=== PATIENT | female | born 1950 | race Caucasian/White ===

== ENCOUNTER 2019-05-22 11:37 | Emergency (ER) | payer MEDICARE, OTHER ==
--- NOTE | 2019-05-22 12:05 | EDM.PDOC ---
ED HPI GENERAL MEDICAL PROBLEM - General Chief Complaint: General Stated Complaint: [facility] Time Seen by Provider: 05/22/19 11:44 Source of Information: Reports: Patient, EMS Notes Reviewed, Family (), RN Notes Reviewed History Limitations: Reports: No Limitations - History of Present Illness INITIAL COMMENTS - FREE TEXT/NARRATIVE: Patient is a 69-year-old female who presents to the ED by [facility] for the evaluation of increased confusion at home. The patient does have a history of pancreatic cancer. The states that he called the ambulance because the patient was little more confused than she normally was and was not following commands or wanting to listen to him. He notes that she is done this in times past where she has been a little bit dehydrated when she acts like this. The patient herself complains of dizziness only, when I asked her if it is lightheadedness or dizziness, she states it is just dizziness she does not relate that it worsens with positioning, or if it is world spinning dizziness. She states that this has just worsened over the last 2 days. She is not complaining of any fevers or chills, nausea or vomiting or diarrhea, no chest pain or shortness of breath, no urinary issues. states that her appetite is been okay but her fluid intake has been somewhat light over the last few days. Patient is not complaining of any pain anywhere. Patient's primary care provider is Dr. Ferguson, and the patient's oncologist is Dr. Diane. The patient was started on Spironolactone 100 mg daily for fluid in her abdomen but the states this was around 2 months ago. He was questioning whether or not this was a little bit too much fluid diuresis as well. The only other new medication that the patient has been started on was omeprazole for some heartburn type symptoms last week. states that the patient seemed to be a little bit dehydrated yesterday, but when they went to bed last night she was fine, and when he woke up this morning, she seemed increasingly more confused and was wrapped up in a towel which is something she does not do on a regular basis. - Related Data Allergies Allergy/AdvReac Type Severity Reaction Status Date / Time pravastatin Allergy Other Verified 05/22/19 11:43 Home Meds: Home Meds Acetaminophen/HYDROcodone [[place] 325-5 MG] 1 tab PO Q4HR PRN 02/12/20 [History] Amoxicillin/Clavulanate K [Augmentin 875-125 MG] 1 tab PO BID #20 tablet [Rx] Lipase/Protease/Amylase [Enzadyne Capsule] 1 cap PO TID 05/22/19 [History] Loperamide [Imodium] 2 mg PO ASDIRECTED PRN 05/22/19 [History] Melatonin 1 mg PO BEDTIME 05/22/19 [History] Ondansetron HCl [Zofran] 8 mg SL ASDIRECTED PRN 05/22/19 [History] Potassium Chloride 40 meq PO DAILY 05/22/19 [History] Promethazine [Phenergan] 25 mg TOP Q6HR PRN 05/22/19 [History] Ranitidine [Zantac] 150 mg PO BEDTIME PRN 05/22/19 [History] Rosuvastatin [Crestor] 5 mg PO DAILY 05/22/19 [History] Simethicone 180 mg PO DAILY PRN 05/22/19 [History] Spironolactone [Aldactone] 100 mg PO DAILY 05/22/19 [History] Ubiquinol 400 mg PO DAILY 05/22/19 [History] oxyCODONE 1 - 2 cap PO Q6HR PRN 05/22/19 [History] traMADol [Ultram] 50 mg PO Q6HR PRN 05/22/19 [History] valACYclovir HCl [valACYclovir] 2 gm PO Q12HR 05/22/19 [History] Past Medical History Gastrointestinal History: Reports: Other (See Below) Other Gastrointestinal History: abdominal hernia Oncologic (Cancer) History: Reports: Other (See Below) Other Oncologic History: pancreatic CA - had chemo and radiation, Last Chemo August 2018. Dr Diane is her oncologist, scans/test show no growth since chemo - Past Surgical History GI Surgical History: Reports: Appendectomy, Other (See Below) Other GI Surgeries/Procedures: stent in biliary duct - gallbladder Musculoskeletal Surgical History: Reports: Knee Replacement Social & Family History - Tobacco Use Smoking Status *Q: Never Smoker - Caffeine Use Caffeine Use: Reports: Coffee - Recreational Drug Use Recreational Drug Use: No ED ROS GENERAL - Review of Systems Review Of Systems: See Below Constitutional: Denies: Fever, Chills, Decreased Appetite HEENT: Denies: Vision Change Respiratory: Denies: Shortness of Breath, Cough Cardiovascular: Denies: Chest Pain GI/Abdominal: Denies: Abdominal Pain, Constipation, Diarrhea, Decreased Appetite , Nausea, Vomiting : Denies: Dysuria, Frequency, Urgency Neurological: Reports: Confusion ( states that she has increased confusion from normal), Dizziness. Denies: Headache, Trouble Speaking Psychiatric: Reports: Confusion. Denies: Agitation, Anxiety ED EXAM, GENERAL - Physical Exam Exam: See Below Exam Limited By: No Limitations General Appearance: Alert, WD/WN, No Apparent Distress Eye Exam: Bilateral Eye: Normal Inspection, PERRL, Other (pt will not follow my command for EOM but she does look around the room) Ears: Normal External Exam Nose: Normal Inspection Throat/Mouth: Normal Inspection, Normal Lips, Normal Teeth, Normal Gums, Normal Oropharynx, Normal Voice, No Airway Compromise Head: Atraumatic, Normocephalic Neck: Normal Inspection Respiratory/Chest: No Respiratory Distress, Lungs Clear, Normal Breath Sounds, No Accessory Muscle Use, Chest Non-Tender Cardiovascular: Normal Peripheral Pulses, Regular Rate, Rhythm, No Murmur Peripheral Pulses: 3+: Radial (L), Radial (R) GI/Abdominal: Normal Bowel Sounds, Soft, Non-Tender, No Distention, No Mass Extremities: Normal Inspection, Normal Capillary Refill Neurological: Alert, CN II-XII Intact (grossly), Normal Cognition, No Motor/ Sensory Deficits Psychiatric: Normal Affect, Normal Mood Skin Exam: Warm, Dry, Intact, Normal Color, No Rash Course - Vital Signs Last Recorded V/S: Last Vital Signs Temp 97.3 F 05/22/19 11:39 Pulse 79 05/22/19 11:39 Resp 18 05/22/19 11:39 BP 114/80 05/22/19 11:39 Pulse Ox 98 05/22/19 11:39 Orthostatic Blood Pressure [ 117/84 Standing] Orthostatic Blood Pressure [ 110/74 Supine] - Orders/Labs/Meds Orders: Active Orders 24 hr Category Date Time Status Orthostatic Vital Signs [RC] ASDIRECTED Care 05/22/19 11:45 Ordered Labs: Laboratory Tests 05/22/19 05/22/19 05/22/19 Range/Units 11:55 11:55 12:40 WBC 3.55 L (3.98-10.04) K/mm3 RBC 3.78 L (3.98-5.22) M/mm3 Hgb 10.8 L (11.2-15.7) gm/dl Hct 33.8 L (34.1-44.9) % MCV 89.4 (79.4-94.8) fl MCH 28.6 (25.6-32.2) pg MCHC 32.0 L (32.2-35.5) g/dl RDW Std Deviation 60.3 H (36.4-46.3) fL Plt Count 136 L (182-369) K/mm3 MPV 9.1 L (9.4-12.3) fl Neutrophils % (Manual) 67 H (40-60) % Band Neutrophils % 0 (0-10) % Lymphocytes % (Manual) 16 L (20-40) % Atypical Lymphs % 0 % Monocytes % (Manual) 13 H (2-10) % Eosinophils % (Manual) 4 (0.7-5.8) % Basophils % (Manual) 0 L (0.1-1.2) Platelet Estimate Adequate RBC Morph Comment Normal Sodium 139 (136-145) mEq/L Potassium 4.1 (3.5-5.1) mEq/L Chloride 106 (98-107) mEq/L Carbon Dioxide 22 (21-32) mEq/L Anion Gap 15.1 H (5-15) BUN 16 (7-18) mg/dL Creatinine 0.8 (0.55-1.02) mg/dL Est Cr Clr Drug Dosing 57.50 mL/min Estimated GFR (MDRD) > 60 (>60) mL/min BUN/Creatinine Ratio 20.0 H (14-18) Glucose 110 (80-115) mg/dL Calcium 9.4 (8.5-10.1) mg/dL Total Bilirubin 0.8 (0.2-1.0) mg/dL AST 39 H (15-37) U/L ALT 55 (14-59) U/L Alkaline Phosphatase 114 (46-116) U/L Total Protein 6.3 L (6.4-8.2) g/dl Albumin 2.6 L (3.4-5.0) g/dl Globulin 3.7 gm/dL Albumin/Globulin Ratio 0.7 L (1-2) Urine Color Light yellow (Yellow) Urine Appearance Clear (Clear) Urine pH 7.0 (5.0-8.0) Ur Specific [place] 1.020 (1.005-1.030) Urine Protein Negative (Negative) Urine Glucose (UA) Negative (Negative) Urine Ketones Negative (Negative) Urine Occult Blood Negative (Negative) Urine Nitrite Negative (Negative) Urine Bilirubin Negative (Negative) Urine Urobilinogen 0.2 (0.2-1.0) Ur Leukocyte Esterase Negative (Negative) Urine RBC 0-5 (0-5) /hpf Urine WBC 0-5 (0-5) /hpf Ur Squamous Epith Cells 0-5 (0-5) /hpf Amorphous Sediment Few H (NOT SEEN) /hpf Urine Bacteria Few (FEW) /hpf Urine Mucus Not seen (FEW) /hpf - Re-Assessments/Exams Free Text/Narrative Re-Assessment/Exam: 05/22/19 12:18 Patient presents to the ED for the evaluation of some increased confusion and not following commands. Due to this being kind of a new thing for the patient I did go ahead with a head CT, and will get a CBC, CMP, urinalysis and some orthostatic vital signs. Of note the patient did receive about 500 mils of fluid from the ambulance staff before evaluation by me. So orthostatic vital signs might be a little bit skewed but her systolic blood pressure still in the low 100s. 05/22/19 13:[address] is back, demonstrates no acute intracranial abnormality but does notice some maxillary sinusitis that is suspicious for acute sinusitis. Upon talking with the patient's family again, they do state that she has had an upper respiratory cold for about 2 weeks. With this new is a will place her on antibiotics for bacterial sinusitis and have her follow-up with their regular doc within the next week for recheck. Departure - Departure Time of Disposition: 13:54 Disposition: Home, Self-Care 01 Condition: Fair Clinical Impression: Acute sinusitis Qualifiers: Sinusitis location: maxillary Recurrence: non-recurrent Qualified Code(s): J01.00 - Acute maxillary sinusitis, unspecified - Discharge Information *PRESCRIPTION DRUG MONITORING PROGRAM REVIEWED*: No *COPY OF PRESCRIPTION DRUG MONITORING REPORT IN PATIENT FLASH: No Prescriptions: Amoxicillin/Clavulanate K [Augmentin 875-125 MG] 1 tab PO BID #20 tablet Instructions: How to Perform a Sinus Rinse, [id number], Sinusitis, Adult, [id number] Forms: ED Department Discharge Additional Instructions: You have been evaluated in the ED today for your increased confusion/dizziness. You did receive some IV fluids in the ER as well for management of your symptoms and suspected dehydration. You had some laboratory evaluation and a head CT done today to rule out any signs of stroke. This did not elicit any sign of stroke at today's visit, but did demonstrate that you are suffering from acute maxillary sinusitis. Since this is been present for around 2 weeks, you will be treated with some antibiotics, 1 tablet 2 times a day for the next 10 days. This antibiotic can cause quite a bit of diarrhea so I recommend that you take a probiotic while taking this antibiotic. Please increase your fluid intake. Get plenty of rest as well. You should feel better in a few days. Recommend that you take some [id number] nasal decongestants, cough/cold remedies to combat this. Medicines like phenylephrine and other sinus decongestants are adequate. You should also try some [id number] nasal rinses, to see if this does not help relieve some of your symptoms. Further recommend trying to decrease your Spironolactone intake by half, if you are taking 100 mg tablet, please split these in half and try this dosage for the next week or 2 or until told otherwise by your regular provider. If your symptoms are not better in one week's time recommend that you follow up in a clinic or your primary care provider. Please return to the ED if your symptoms change or worsen. Sepsis Event Note - Evaluation Sepsis Screening Result: No Definite Risk - Focused Exam Vital Signs: Vital Signs Temp Pulse Resp BP Pulse Ox 05/22/19 11:39 97.3 F 79 18 114/80 98 Date Exam was Performed: 05/22/19 Time Exam was Performed: 13:52 - My Orders Last 24 Hours: My Active Orders 05/22/19 11:45 Orthostatic Vital Signs [RC] ASDIRECTED - Assessment/Plan Last 24 Hours: My Active Orders 05/22/19 11:45 Orthostatic Vital Signs [RC] ASDIRECTED
--- NOTE | 2019-05-22 13:16 | CT ---
Head CT Technique: Multiple axial sections through the brain were obtained. Intravenous contrast was not utilized. Comparison: No prior intracranial imaging. Findings: Ventricles along with basal cisterns and sulci over the convexities are within normal limits for the patient's age. No abnormal parenchymal densities are seen. No evidence of intracranial hemorrhage. No midline shift or mass-effect is seen. Bone window settings were reviewed which show partially visualized fluid levels within the maxillary sinuses. Minimal mucosal thickening is seen within the ethmoid sinuses. Mastoid sinuses are clear. No acute calvarial abnormality is appreciated. Impression: 1. Fluid partially visualized within both maxillary sinuses suspicious for acute sinusitis. 2. No acute intracranial abnormality is appreciated. Diagnostic code #3 This report was dictated in [place] Standard Time
== END 2019-05-22 14:40 | disposition home or self-care (01) ==
LOC: JD.ED 11:37
DX: J01.00 Acute maxillary sinusitis, unspecified (principal); Z88.8 Allergy status to other drugs, medicaments and biological substances; Z85.07 Personal history of malignant neoplasm of pancreas
CPT/HCPCS: 36415; 70450; 70450-26; 80053; 81001; 85007; 85027; 99283; 99285-25

== ENCOUNTER → 2020-12-31 | Day surgery (SDC) | payer MEDICARE, OTHER ==
[~2020-12-31] MED LIST: Cefuroxime 10 MG/ML SYRINGE EYERT SCH; Lidocaine 1% PF 2 ML SDV INJECT SCH; Pilocarpine 4% Ophth Soln 15 ML Bot EYERT SCH
[2020-12-31] MEDS: Polymyxin B/Trimethoprim 10 ML Bottle EYERT SCH ×3 (08:15→10:37)
[2020-12-31] MEDS: Brimonidine 0.2% Ophth Soln 5 ML Bottle EYERT SCH ×3 (08:20→10:37)
[2020-12-31] MEDS: Phenylephrine 2.5% Ophth Soln 2 ML Bot EYERT SCH ×6 (08:26→10:36)
[2020-12-31] MEDS: Tropicamide 1% Ophth Soln 15 ML Bottle EYERT SCH ×4 (08:32→09:30)
--- NOTE | 2020-12-31 09:55 | PCM.PREANE ---
Preanesthetic Assessment - Anesthesia/Transfusion/Family Hx Anesthesia History: Prior Anesthesia Without Reaction Family History of Anesthesia Reaction: No Transfusion History: No Prior Transfusion(s) Intubation History: Unknown - Review of Systems General: No Symptoms Pulmonary: No Symptoms Cardiovascular: No Symptoms Gastrointestinal: No Symptoms Neurological: No Symptoms Other: Reports: None - Physical Assessment NPO Status Date: 12/30/20 NPO Status Time: 20:00 Vital Signs: Last Vital Signs Temp 36.2 C 12/31/20 08:00 Pulse 76 12/31/20 08:00 Resp 16 12/31/20 08:00 BP 117/58 L 12/31/20 08:00 Pulse Ox 98 12/31/20 08:00 Height: 1.57 m Weight: 52.163 kg ASA Class: 2 Mental Status: Alert & Oriented x3 Airway Class: Mallampati = 1 Dentition: Reports: Normal Dentition Thyro-Mental Finger Breadths: 3 Mouth Opening Finger Breadths: 3 ROM/Head Extension: Full Lungs: Clear to Auscultation, Normal Respiratory Effort Cardiovascular: Regular Rate, Regular Rhythm - Allergies Allergies/Adverse Reactions: Allergies Allergy/AdvReac Type Severity Reaction Status Date / Time pravastatin AdvReac Muscle Verified 12/31/20 08:15 Aches - Acknowledgements Anesthesia Type Planned: MAC Pt an Appropriate Candidate for the Planned Anesthesia: Yes Alternatives and Risks of Anesthesia Discussed w Pt/Guardian: Yes Pt/Guardian Understands and Agrees with Anesthesia Plan: Yes PreAnesthesia Questionnaire HEENT History: Reports: Impaired Vision Cardiovascular History: Reports: High Cholesterol, Hypertension Gastrointestinal History: Reports: Other (See Below) Other Gastrointestinal History: abdominal hernia Oncologic (Cancer) History: Reports: Other (See Below) Other Oncologic History: pancreatic CA - had chemo and radiation, Last Chemo August 2018. Dr Diane is her oncologist, scans/test show no growth since chemo - Past Surgical History GI Surgical History: Reports: Appendectomy, Other (See Below) Other GI Surgeries/Procedures: stent in biliary duct - gallbladder Musculoskeletal Surgical History: Reports: Knee Replacement - SUBSTANCE USE Tobacco Use Status *Q: Never Tobacco User - HOME MEDS Home Medications: Home Meds Spironolactone [Aldactone] 100 mg PO DAILY 05/22/19 [History] valACYclovir HCl [valACYclovir] 2 gm PO Q12HR 05/22/19 [History] Calcium Carb/Vitamin D3/Vit K1 [Calcium + D Soft Chewable Tab] 1 tab PO DAILY 12/30/20 [History] Carboxymethylcellulose Sodium [Artificial Tears] 1 dose EYEBOTH ASDIRECTED 12/30/20 [History] Cranberry 500 mg PO DAILY 12/30/20 [History] Cyanocobalamin/Folic Acid [Vitamin A49-Ixdgo Acid] 1 tab PO DAILY 12/30/20 [H istory] Magnesium Oxide 400 mg PO DAILY 12/30/20 [History] Omeprazole Magnesium [Prilosec Otc] 20 mg PO DAILY 12/30/20 [History] Rifaximin [Xifaxan] 550 mg PO ASDIRECTED 12/30/20 [History] - CURRENT (IN HOUSE) MEDS Current Meds: Current Medications Brimonidine Tartrate (Brimonidine 0.2% Ophth Soln 5 Ml Bottle) 0 ml EYERT ASDIRECTED BRENT Stop: 12/31/20 18:00 Last Admin: 12/31/20 09:09 Dose: 1 drop Documented by: Cefuroxime Sodium (Cefuroxime 10 Mg/Ml Syringe) 0 mg EYERT ASDIRECTED BRENT Stop: 12/31/20 18:00 Lidocaine HCl (Lidocaine 1% Pf 2 Ml Sdv) 0 ml INJECT ASDIRECTED BRENT Stop: 12/31/20 18:00 Phenylephrine HCl (Phenylephrine 2.5% Ophth Soln 2 Ml Bot) 0 ml EYERT ASDIRECTED BRENT Stop: 12/31/20 18:00 Last Admin: 12/31/20 09:20 Dose: 1 drop Documented by: Pilocarpine HCl (Pilocarpine 4% Ophth Soln 15 Ml Bot) 0 ml EYERT ASDIRECTED BRENT Stop: 12/31/20 18:00 Polymyxin/Trimethoprim Sulfate (Polymyxin B/Trimethoprim 10 Ml Bottle) 0 ml EYERT ASDIRECTED BRENT Stop: 12/31/20 18:00 Last Admin: 12/31/20 09:01 Dose: 1 drop Documented by: Tetracaine HCl (Tetracaine Hcl/Pf 0.5% 4 Ml Bottle) 0 ml EYEBOTH ASDIRECTED BRENT Stop: 12/31/20 18:00 Tropicamide (Tropicamide 1% Ophth Soln 15 Ml Bottle) 0 ml EYERT ASDIRECTED BRENT Stop: 12/31/20 18:00 Last Admin: 12/31/20 09:30 Dose: 1 drop Documented by:
[2020-12-31] MEDS: Tetracaine HCl/PF 0.5% 4 ML Bottle EYEBOTH SCH ×3 (10:06→10:36)
--- NOTE | 2020-12-31 10:36 | PCM48HPAN ---
Post Anesthesia Note - EVALUATION WITHIN 48HRS OF ANESTHETIC Vital Signs in Normal Range: Yes Patient Participated in Evaluation: Yes Respiratory Function Stable: Yes Airway Patent: Yes Cardiovascular Function Stable: Yes Hydration Status Stable: Yes Pain Control Satisfactory: Yes Nausea and Vomiting Control Satisfactory: Yes Mental Status Recovered: Yes Vital Signs: Last Vital Signs Temp 36.2 C 12/31/20 08:00 Pulse 76 12/31/20 08:00 Resp 16 12/31/20 08:00 BP 117/58 L 12/31/20 08:00 Pulse Ox 98 12/31/20 08:00
== END ==
LOC: JD.SDS 08:01
PROVIDERS: ATTEND Ophthalmology
DX: H25.813 Combined forms of age-related cataract, bilateral (principal); D31.31 Benign neoplasm of right choroid; H16.223 Keratoconjunctivitis sicca, not specified as Sjogren's, bilateral; H02.834 Dermatochalasis of left upper eyelid; H02.831 Dermatochalasis of right upper eyelid; E78.00 Pure hypercholesterolemia, unspecified; I10 Essential (primary) hypertension; Z90.49 Acquired absence of other specified parts of digestive tract; Z98.890 Other specified postprocedural states; Z79.899 Other long term (current) drug therapy; Z88.8 Allergy status to other drugs, medicaments and biological substances
CPT/HCPCS: 66984; J0697; V2632

== ENCOUNTER 2021-07-29 10:25 | Day surgery (SDC) | payer MEDICARE, OTHER ==
[2021-07-29] MEDS: Polymyxin B/Trimethoprim 10 ML Bottle EYELF SCH ×4 (10:20→13:06)
[2021-07-29] MEDS: Brimonidine 0.2% Ophth Soln 5 ML Bottle EYELF SCH ×4 (10:23→13:06)
[~2021-07-29 10:25] MED LIST changes: +Brimonidine 0.2% Ophth Soln 5 ML Bottle EYELF SCH; +Cefuroxime 10 MG/ML SYRINGE EYELF SCH; -Cefuroxime 10 MG/ML SYRINGE EYERT SCH; +Phenylephrine 2.5% Ophth Soln 2 ML Bot EYELF SCH; +Pilocarpine 4% Ophth Soln 15 ML Bot EYELF SCH; -Pilocarpine 4% Ophth Soln 15 ML Bot EYERT SCH; +Polymyxin B/Trimethoprim 10 ML Bottle EYELF SCH; +Tetracaine HCl/PF 0.5% 4 ML Bottle EYEBOTH SCH; +Tropicamide 1% Ophth Soln 15 ML Bottle EYELF SCH
[2021-07-29] MEDS: Phenylephrine 2.5% Ophth Soln 2 ML Bot EYELF SCH ×6 (10:27→12:57)
[2021-07-29] MEDS: Tropicamide 1% Ophth Soln 15 ML Bottle EYELF SCH ×4 (10:31→11:03)
[2021-07-29] MEDS: Tetracaine HCl/PF 0.5% 4 ML Bottle EYEBOTH SCH ×5 (11:05→12:57)
[2021-07-29] MEDS: Lidocaine 1% PF 2 ML SDV INJECT SCH ×2 (11:33→13:05)
[2021-07-29] MEDS: Cefuroxime 10 MG/ML SYRINGE EYELF SCH ×2 (11:45→13:05)
[2021-07-29] MEDS: Pilocarpine 4% Ophth Soln 15 ML Bot EYELF SCH ×2 (11:46→13:06)
== END 2021-07-29 11:54 | disposition home or self-care (01) ==
LOC: JD.SDS 10:25
PROVIDERS: ATTEND Ophthalmology
DX: H25.812 Combined forms of age-related cataract, left eye (principal); H17.813 Minor opacity of cornea, bilateral; H18.513 Endothelial corneal dystrophy, bilateral; H35.3131 Nonexudative age-related macular degeneration, bilateral, early dry stage; H16.103 Unspecified superficial keratitis, bilateral; H16.223 Keratoconjunctivitis sicca, not specified as Sjogren's, bilateral; Z96.1 Presence of intraocular lens; Z88.1 Allergy status to other antibiotic agents; Z79.899 Other long term (current) drug therapy
CPT/HCPCS: J0697

== ENCOUNTER 2024-08-06 14:24 | Emergency (ER) | payer MEDICARE, OTHER ==
[2024-08-06] MEDS: Lidocaine 1% 10 ML MDV INJECT ONE (16:09)
[2024-08-06] MEDS: Diphtheria,Pertussis(Acell),Tetanus Vaccine 0.5 ML Syringe IM ONE (16:10)
== END 2024-08-06 16:44 | disposition home or self-care (01) ==
LOC: JD.ED 14:24
DX: S81.812A Laceration without foreign body, left lower leg, initial encounter (principal); Z23 Encounter for immunization; I10 Essential (primary) hypertension; E78.00 Pure hypercholesterolemia, unspecified; Z90.49 Acquired absence of other specified parts of digestive tract; Z79.899 Other long term (current) drug therapy; Z88.8 Allergy status to other drugs, medicaments and biological substances; W19.XXXA Unspecified fall, initial encounter
CPT/HCPCS: 12002; 90471; 90715; 99282; J2003; 12013; 99283